=== PATIENT | female | born 1960 | race Caucasian/White ===

== ENCOUNTER 2019-10-06 10:43 | Day surgery (SDC) | payer MEDICARE ==
[~2019-10-06 10:43] MED LIST: CEFAZOLIN 2 GM-D5W BAG** 2 GM/50 ML ML IV ONE; Lactated Ringers 1,000 ML IV ONE; Lactated Ringers 1,000 ML IV SCH; XYLOCAINE 1% HCL 20 ML MDV ONE
--- NOTE | 2019-10-06 11:01 | HP ---
DATE OF SURGERY: 10/06/2019 HISTORY OF PRESENT ILLNESS: The patient is a 59 year-old who has frequent iron infusions required 12 sticks to try to get an IV last time. She was admitted by her primary care physician for long-term IV access, requested Port-A-Cath placement. Her medical doctors are following for the GI standpoint, according to the patient. PAST MEDICAL HISTORY: Iron deficiency requiring frequent infusions being followed by her primary care physician. Migraines, diabetes, hyperlipidemia, allergies, chronic obstructive pulmonary disease, fibromyalgia in the past, asthma. PAST SURGICAL HISTORY: Hysterectomy in the past. MEDICATIONS: Victoza, Metformin, Sumatriptan, furosemide, Baudette, Xanax, Linzess, Fenofibrate, atorvastatin, Singulair, trazodone, Baclofen, Ventolin HFA. ALLERGIES: NKDA. FAMILY HISTORY: Colon cancer. SOCIAL HISTORY: She denied alcohol abuse. REVIEW OF SYSTEMS: Fourteen systems reviewed per admission assessment. No chest pain or palpitations other systems negative or noncontributory as above and per preadmission questionnaire. PHYSICAL EXAMINATION: GENERAL: No acute distress. HEENT: Sclerae nonicteric. NECK: No JVD. CHEST: Equal excursion, nonlabored breathing. CVS: Regular rate and rhythm. ABDOMEN: Soft. EXTREMITIES: No significant edema. NEURO: Alert, oriented, moving extremities symmetrically. No gross motor deficits noted. IMPRESSION: Poor peripheral access, need for frequent IV infusions. I feel she is a candidate for Port-A-Cath placement. Risks and benefits explained in detail including but not limited to bleeding or infection, risk of thrombosis or pneumothorax, risk of port or catheter fracture or failure possibly requiring removal and replacement, risk of arterial injury, remote risk of major venous tear, remote risk of mortality, general risk of anesthesia, deep venous thrombosis, pulmonary embolism, pneumonia, risk of port infection possibly requiring removal. She understands all of the above but not limited to. Will schedule Port-A-Cath placement with C-arm fluoroscopy as an outpatient. 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
[2019-10-06] MEDS ORDERED: DIPRIVAN 200 MG/20 ML IV ONE (12:56)
[2019-10-06] MEDS ORDERED: SUBLIMAZE 100 MCG/2 ML ONE (12:57)
[2019-10-06] MEDS ORDERED: Versed 2 MG/2 ML Injection ONE (12:57)
--- NOTE | 2019-10-06 13:40 | XRAY ---
Indication: Port placement. Intraoperative fluoroscopy was provided for 2 seconds. Single digital spot image submitted for interpretation demonstrates partially visualized left Port-A-Cath with tip projecting over the SVC. Correlate with intraoperative findings/report.
[2019-10-06] MEDS ORDERED: TORAdol 30 mg Injection ONE (13:53)
[2019-10-06 14:57] VITALS: PULSE 73; O2SAT 100
[2019-10-06 14:58] VITALS: BP 129/73
--- NOTE | 2019-10-06 15:08 | OP ---
SURGERY DATE/TIME: 10/06/2019 1256 PREOPERATIVE DIAGNOSIS: Poor peripheral access, need for long-term IV access for frequent IV infusions, need for long-term Port-A-Cath access per primary physician and nurse practitioner. POSTOPERATIVE DIAGNOSIS: Poor peripheral access, need for long-term IV access for frequent IV infusions, need for long-term Port-A-Cath access per primary physician and nurse practitioner. PROCEDURE: Tunnel Port-A-Cath placement with C-arm fluoroscopy. SURGEON: Dr. Seferino Bang. ANESTHESIA: MAC. 1% lidocaine local. ESTIMATED BLOOD LOSS: Minimal. INDICATIONS: As noted above. Risks and benefits explained in detail and not limited to and consent obtained. DESCRIPTION OF PROCEDURE AND FINDINGS: The patient is taken to the operating room. MAC anesthesia introduced. After official time out and no disagreement with the planned procedure, in Trendelenburg position 1% lidocaine local infiltrated left subclavicular area. An 18 gauge cannulation needle inserted on first pass. Good dark nonpulsatile venous return. Guide wire passed without difficulty and confirmed down the superior vena cava. It was followed by anesthetizing tunnel track and port pocket. Inferior subcu port pocket created with aid of cautery. Port secured to the chest wall with Prolene suture x2. Catheter tunneled down from cannulation stab wound down to port pocket area. The dilator and break away sheath easily fed over the guide wire. Catheter fed down break away sheath. The tip was in the distal superior vena cava on C-arm fluoroscopy. Lung larson were noted to be up bilaterally. Catheter cut to the appropriate length, snapped on the port with the hub. The port aspirated dark, nonpulsatile venous return with ease. Flushed with heparinized saline with ease. The tip was in good location in the distal superior vena cava. Lung larson were noted to be up bilaterally. Port was flushing and aspirated with ease and flushed with heparinized saline with ease. It was felt that no further x-rays were necessary. Subcu closed with 3-0 Vicryl. Skin closed with 4-0 Vicryl. Cannulation stab wound closed with 4-0 Vicryl. Steri-Strips and sterile dressing applied. The patient tolerated the procedure well. There were no immediate complications. Findings discussed with the family out in the waiting area.
== END 2019-10-06 15:26 | disposition home or self-care (01) ==
LOC: SDC 10:43
PROVIDERS: ATTEND Surgery
DX: Z45.2 Encounter for adjustment and management of vascular access device (principal); D50.9 Iron deficiency anemia, unspecified; J44.9 Chronic obstructive pulmonary disease, unspecified; E11.9 Type 2 diabetes mellitus without complications; E78.5 Hyperlipidemia, unspecified; Z79.899 Other long term (current) drug therapy
CPT/HCPCS: 36571; 77001; C1788; J0690; J1642; J1885; J2250; J2704; J3010

== ENCOUNTER 2021-09-05 10:10 | Day surgery (SDC) | payer MEDICARE ==
--- NOTE | 2021-09-05 07:49 | HP ---
DATE OF SURGERY: 09/05/2021 HISTORY OF PRESENT ILLNESS: The patient is a 61-year-old has a shoulder port, not flushing it good, not using the port for some time desires removal of port that had been placed in the past. She had come in for iron infusions as she had her port initially. PAST MEDICAL HISTORY: Iron deficiency anemia, diabetes, fibromyalgia, kidney problem and asthma. PAST SURGICAL HISTORY: Hysterectomy. She had port placed in the past. MEDICATIONS: Furosemide, duloxetine, acetaminophen, Victoza, Linzess, atorvastatin, trazodone, Ventolin. ALLERGIES: NKDA. FAMILY HISTORY: Cancer, heart disease, diabetes, asthma, chronic obstructive pulmonary disease. SOCIAL HISTORY: No alcohol abuse. REVIEW OF SYSTEMS: Fourteen systems reviewed. Negative or noncontributory as above and per preadmission questionnaire. PHYSICAL EXAMINATION: GENERAL: No acute distress. HEENT: Sclerae nonicteric. NECK: No JVD. CHEST: Equal excursion, nonlabored breathing. CVS: Regular rate and rhythm. ABDOMEN: Soft. No peritoneal signs. EXTREMITIES: No significant edema. NEURO: Alert, oriented, moving extremities symmetrically. PSYCH: Appropriate mood and affect. IMPRESSION: No longer using her port, not flushing and some shoulder aches. The patient desires removal of the Port-A-Cath that she is not using. General risk of bleeding or infection, risk of wound dehiscence possibly requiring packing, general risk of aches and pains, risk of deep vein thrombosis, pulmonary embolism, pneumonia, possibility the catheter could be scarred in and require just tying off the catheter and leaving the port itself, remote risk of catheter breaking possibly requiring other referrals. She also understands the possibility that removing this port may not improve her shoulder aches and pains. She understands all the above and agrees to the planned procedure as well as risk of sedation, cardiac, pulmonary but not limited to. Will proceed with removal of tunnel Port-A-Cath under IV sedation or MAC anesthesia as an outpatient.
[~2021-09-05 10:10] MED LIST changes: -CEFAZOLIN 2 GM-D5W BAG** 2 GM/50 ML ML IV ONE; -Lactated Ringers 1,000 ML IV SCH
[2021-09-05] MEDS ORDERED: Lactated Ringers 1,000 ML IV SCH (10:30)
[2021-09-05] MEDS ORDERED: Lactated Ringers 1,000 ML IV ONE (10:31)
[2021-09-05] MEDS ORDERED: Zofran 4 MG/2 ML VIAL ONE (11:22)
[2021-09-05] MEDS ORDERED: DIPRIVAN 200 MG/20 ML IV ONE (11:22)
[2021-09-05] MEDS ORDERED: Versed 2 MG/2 ML Injection ONE (11:22)
[2021-09-05] MEDS ORDERED: Xylocaine-Mpf 2% 5 Ml Vial ONE (11:22)
[2021-09-05] MEDS ORDERED: SUBLIMAZE 100 MCG/2 ML ONE (11:22)
[2021-09-05] MEDS ORDERED: Decadron 4 MG INJ ONE (11:22)
[2021-09-05 12:41] VITALS: BP 176/89; PULSE 79; O2SAT 95
--- NOTE | 2021-09-06 08:11 | OP ---
SURGERY DATE/TIME: 09/05/2021 1122 PREOPERATIVE DIAGNOSIS: Undesired Port-A-Cath she is no longer using desires removal. POSTOPERATIVE DIAGNOSIS: Undesired Port-A-Cath she is no longer using desires removal. PROCEDURE: Removal of tunneled Port-A-Cath left chest. SURGEON: Dr. Seferino Bang. ANESTHESIA: MAC. 1% lidocaine local. ESTIMATED BLOOD LOSS: Minimal. INDICATIONS: As noted above. Risks and benefits explained in detail and not limited to and consent obtained. DESCRIPTION OF PROCEDURE AND FINDINGS: The patient is taken to the operating room. MAC anesthesia provided. After official time out and no disagreement with planned procedure, chest prepped and draped in usual sterile fashion. 1% lidocaine local infiltrated in field pattern around the old port site. Transverse incision made through the old scar in the chest. Dissection carried down to chest wall. The port is identified. Two Prolene sutures removed and passed off. The port mobilized upwards. The port and the catheter removed intact and passed off. The tunnel track closed with 3-0 Vicryl. Fibrous pocket closed with 3-0 Vicryl. Subcu closed with 3-0 Vicryl. Skin closed with 4-0 Vicryl. Steri-Strips and sterile dressing applied. The patient tolerated the procedure well. There were no immediate complications. I will see if she has family in the waiting area to discuss the findings with.
== END 2021-09-05 12:48 | disposition home or self-care (01) ==
LOC: SDC 10:10
PROVIDERS: ATTEND Surgery
DX: Z45.2 Encounter for adjustment and management of vascular access device (principal); E11.9 Type 2 diabetes mellitus without complications; Z79.899 Other long term (current) drug therapy
CPT/HCPCS: 82947; J1100; J2250; J2405; J2704; J3010

== ENCOUNTER 2022-12-20 09:16 | Day surgery (SDC) | payer MEDICARE ==
[2022-12-20] MEDS ORDERED: LIDOCAINE HCL 1% 50 MG/5 ML VL PF IJ ONE (09:17)
[2022-12-20] MEDS ORDERED: Depo-Medrol 40 MG/ML IM ONE (09:17)
[2022-12-20] MEDS ORDERED: Sodium Chloride 0.9(Preservative Free) 10 ML IJ ONE (09:17)
[2022-12-20] MEDS ORDERED: DIPRIVAN 200 MG/20 ML IV ONE (10:55)
--- NOTE | 2022-12-20 12:14 | XRAY ---
Indication: Lumbar DAVID. Intraoperative fluoroscopy provided for 17 seconds. 2 digital spot images submitted for interpretation demonstrates posterior needle tip projecting posterior to last lumbar segment. Small amount of contrast injected for needle tip placement. Correlate with intraoperative findings/report.
--- NOTE | 2022-12-20 12:22 | XRAY ---
17 seconds of fluoroscopy was used in surgery for a lumbar DAVID.
== END 2022-12-20 11:35 | disposition home or self-care (01) ==
LOC: SDC-PAIN 09:16
PROVIDERS: ATTEND Psychiatry & Neurology Pain Medicine
DX: M54.16 Radiculopathy, lumbar region (principal); E11.9 Type 2 diabetes mellitus without complications; Z79.899 Other long term (current) drug therapy
CPT/HCPCS: 64493; 72100; 77003; 82947; J1030; J2001; J2704; Q9966

== ENCOUNTER 2023-10-31 09:17 | Day surgery (SDC) | payer MEDICARE ==
[2023-10-31] MEDS ORDERED: XYLOCAINE-MPF 1% 5ML SDV IJ ONE (09:18)
[2023-10-31] MEDS ORDERED: Sodium Chloride 0.9(Preservative Free) 10 ML IJ ONE (09:18)
[2023-10-31] MEDS ORDERED: Decadron 4 MG INJ IV ONE (09:18)
[2023-10-31] MEDS ORDERED: Lactated Ringers 1,000 ML IV ONE (10:55)
[2023-10-31] MEDS ORDERED: DIPRIVAN 200 MG/20 ML IV ONE ×2 (11:14→11:26)
--- NOTE | 2023-10-31 12:04 | XRAY ---
Indication: Right piriformis injection. Intraoperative fluoroscopy provided for 16 seconds. Single digital spot image submitted for interpretation demonstrates posterior needle tip projecting over right piriformis. Small amount of contrast injected for needle tip placement. Correlate with intraoperative findings/report.
--- NOTE | 2023-10-31 12:04 | XRAY ---
Indication: Right L4-S1 transforaminal DAVID. Intraoperative fluoroscopy provided for 29 seconds. 4 digital spot image submitted for interpretation demonstrates posterior needle tips projecting over expected right L4 and L5 nerve roots. Small amount of contrast injected for needle tip placement. Correlate with intraoperative findings/report.
--- NOTE | 2023-10-31 12:06 | XRAY ---
29 seconds of fluoroscopy was used in surgery for a right L4-S1 transforaminal DAVID.
--- NOTE | 2023-10-31 12:07 | XRAY ---
16 seconds of fluoroscopy was used in surgery for a right piriformis injection.
== END 2023-10-31 11:48 | disposition home or self-care (01) ==
LOC: SDC-PAIN 09:17
PROVIDERS: ATTEND Psychiatry & Neurology Pain Medicine
DX: M54.16 Radiculopathy, lumbar region (principal); M79.18 Myalgia, other site; E11.9 Type 2 diabetes mellitus without complications
CPT/HCPCS: 20552; 64483; 64484; 72100; 72170; 77002; 77003; 82947; J1100; J2704; Q9966